=== PATIENT | female | born 1970 | race African-American/Black ===

== ENCOUNTER 2016-10-06 00:09 | Emergency (ER) | payer MEDICARE ==
[2016-10-06 01:20] LABS: Clarity Cloudy (Clear); Leukocyte Small (Negative); Nitrite Positive (Negative); Specific Gravity, Urine 1.025 (1.005-1.030); pH, Urine 5.5 (5.0-9.0)
[2016-10-06 01:21] LABS: Bilirubin Negative (Negative); Blood, Urine Large (Negative); Glucose, Urine (Dipstick) Negative (Negative); Protein, Urine (Dipstick) > or equal to 300 mg/dL (Neg-Trace)
[2016-10-06 01:22] LABS: Bacteria/HPF 4+ HPF (None Seen); RBC/HPF GREATER THAN 50-TNTC HPF (0-3); WBC/HPF 21-50 HPF (0-3); Yeast-All Forms 1+ HPF (None Seen)
== END 2016-10-06 01:45 | disposition home or self-care (01) ==
LOC: MADERS 00:09
DX: N39.0 Urinary tract infection, site not specified (principal)
CPT/HCPCS: 81003; 81015; 87077; 87086; 87186; 99283

== ENCOUNTER 2019-09-04 22:22 | Emergency (ER) | payer MEDICARE ==
[2019-09-04] MEDS ORDERED: Morphine 4 MG/ML VIAL ONE (22:47)
[2019-09-04] MEDS ORDERED: Ketorolac Tromethamine 60 MG/2 ML VIAL ONE (22:48)
== END 2019-09-04 23:17 | disposition home or self-care (01) ==
LOC: MADERS 22:22
DX: G89.18 Other acute postprocedural pain (principal); Z76.0 Encounter for issue of repeat prescription; B20 Human immunodeficiency virus [HIV] disease; Z85.828 Personal history of other malignant neoplasm of skin
CPT/HCPCS: 96372; J1885; J2270

== ENCOUNTER 2022-05-17 00:11 | Emergency (ER) | payer OTHER, MEDICAID ==
[2022-05-17 00:49] LABS: #Lymphocytes 1.6 thou/uL (1.20-3.40); #Monocytes 0.4 thou/uL (0.11-0.59); #Neutrophils 2.8 thou/uL (1.40-6.50); %Basophils 0.5 % (0.0-1.0); %Eosinophils 0.9 % (0.0-10.0); %Lymphocytes 32.4 % (21.0-51.0); %Monocytes 8.6 % (0.0-10.0); %Neutrophils 57.6 % (42.0-75.0); Hemoglobin 11.8 g/dL (12.0-16.0); Mean Corpuscular HGB CONC 33.1 g/dL (32.0-36.0); Mean Corpuscular Volume 87.8 fl (78.0-98.0); Mean Platelet Volume 5.7 fL (7.4-10.4); Platelet Count 320 10x3/uL (130-400); RBC Distribution Width 12.7 % (11.5-14.5); Red Blood Cell (RBC) Count 4.06 mill/uL (4.20-5.40); White Blood Cell (WBC) Count 4.8 10x3/uL (4.8-10.8)
[2022-05-17] MEDS ORDERED: Ketorolac Tromethamine 30 MG/ML VIAL ONE (01:03)
[2022-05-17 01:29] LABS: ALT (SGPT) 34 U/L (8-55); AST (SGOT) 47 U/L (5-34); Albumin 3.6 g/dL (3.5-5.0); Alkaline Phosphatase 316 U/L (40-110); BUN (Urea Nitrogen) 17 mg/dL (9.8-20.1); Bilirubin, Total 0.5 mg/dL (0.2-1.2); Calc. Creatinine Clearance 0 mL/min (70-130); Calcium 8.6 mg/dL (7.8-10.44); Estimated GFR 83; Globulin 3.7 g/dL (2.4-3.5); Glucose 85 mg/dL (70-105); Protein, Total 7.3 g/dL (6.0-8.3)
[2022-05-17 01:33] LABS: Chloride 108 mmol/L (98-107); Potassium 3.8 mmol/L (3.5-5.1); Sodium 139 mmol/L (136-145)
[2022-05-17 01:47] LABS: Carbon Dioxide 24 mmol/L (22-29)
[2022-05-17 01:57] LABS: Anion Gap 11 mmol/L (10-20)
[2022-05-17] MEDS ORDERED: Mag-Al Plus 1200 MG/1200 MG/120 MG/30 ML UDCUP ONE (02:17)
[2022-05-17] MEDS ORDERED: Lidocaine Viscous Sol 2% 15 ml UD Cup ONE (02:17)
== END 2022-05-17 02:57 | disposition home or self-care (01) ==
LOC: MADERS 00:11
DX: K21.00 Gastro-esophageal reflux disease with esophagitis, without bleeding (principal); Z21 Asymptomatic human immunodeficiency virus [HIV] infection status
CPT/HCPCS: 71045; 80053; 84484; 85025; 85379; 93005; 96374; J1885

== ENCOUNTER 2025-03-05 12:30 | Emergency (ER) | payer OTHER | END 2025-03-05 13:45 | disposition home or self-care (01) | LOC: MADERS 12:30 | DX: S60.211A Contusion of right wrist, initial encounter (principal); I10 Essential (primary) hypertension; B20 Human immunodeficiency virus [HIV] disease; W23.1XXA Caught, crushed, jammed, or pinched between stationary objects, initial encounter | CPT/HCPCS: 99283 ==